=== PATIENT | male | born 1985 | race Caucasian/White ===

== ENCOUNTER 2016-11-03 15:31 | Inpatient (IN) | payer BC, OTHER ==
[~2016-11-03] VITALS: Ht 190.5 cm; Wt 77.1 kg
--- NOTE | 2016-11-03 20:00 | NUR ---
INTAKE ASSESSMENT PT ASSESSED IN INTAKE DEPARTMENT.PT IS A/O X 4.V/S ARE STABLE.DY=555/69,HR=82,T=97.9,R=18,O2 SAT=95%.PT IS ABLE TO AMBULATE IN A STEADY GAIT,SPEECH IS CLEAR.BREATHING IS EVEN AND NON LABORED,NO S/S OF ACUTE DISTRESS NOTED.PT IS IN STABLE CONDITION TO PROCEED TO DETOX UNIT.
[2016-11-03] MEDS ORDERED: MAG HYDROX/AL HYDROX/SIMETH 30 ML LIQUID UDC PO PRN (20:15)
[2016-11-03] MEDS ORDERED: MIRALAX 17 GM POWD.PACK PO PRN (20:15)
[2016-11-03] MEDS ORDERED: LOPERAMIDE HCL 2 MG CAPSULE PO PRN ×2 (20:15)
[2016-11-03] MEDS ORDERED: IBUPROFEN 600 MG TABLET PO PRN (20:15)
[2016-11-03] MEDS ORDERED: LORAZEPAM 1 MG TABLET PO PRN ×2 (20:15)
[2016-11-03] MEDS ORDERED: ACETAMINOPHEN 325 MG TABLET PO PRN (20:15)
[2016-11-03] MEDS ORDERED: diphenhydrAMINE 50 MG CAPSULE PO PRN (20:15)
[2016-11-03] MEDS ORDERED: ONDANSETRON ODT 4 MG TAB.RAPDIS SL PRN (20:15)
[2016-11-03] MEDS ORDERED: BUPRENORPHINE HCL 2 MG TAB.SUBL SL PRN (20:15)
[2016-11-03] MEDS ORDERED: HYDROXYZINE PAMOATE 25 MG CAPSULE PO PRN (20:15)
[2016-11-03] MEDS ORDERED: MAGNESIUM HYDROXIDE 30 ML LIQUID UDC PO PRN (20:15)
[2016-11-03] MEDS ORDERED: ONDANSETRON 4 MG/2 ML VIAL IM PRN (20:15)
[2016-11-03] MEDS ORDERED: LORAZEPAM 2 MG/1 ML VIAL IM PRN (20:15)
[2016-11-03] MEDS ORDERED: DICYCLOMINE HCL 20 MG TABLET PO PRN (20:15)
--- NOTE | 2016-11-03 21:00 | NUR ---
ADMISSION NOTE HT=6'3" HF=349 LBS. NKA. CD=664/82,T=97.9.HR=83,R=18,O2 SAT=96%. COWS=6 ; CIWA=4. ADMITTING 31 Y/O MALE TO [facility] FOR OPIATE DEPENDENCY.PT IS A/O X 4,HAS NKA,PLACED ON A REGULAR DIET AND FULL CODE STATUS.PT HAS BEEN USING HEROIN IV SINCE HE WAS 16 YEARS OLD.HE HAS HAD PERIODS OF SOBRIETY OFF AND ON,THE LONGEST WAS FOR 7 YEARS FROM 2004 TO 2010.PT HAS BEEN USING UP TO 4 GRAMS OF HEROIN IV FOR THE PAST 4 MONTHS ON A DAILY BASIS.PT HAS A PMH OF HEPATITIS C,ANXIETY,NERVE DAMAGE/SURGERY IN [facility] AND SEIZURE DISORDER.HIS LAST SEIZURE WAS IN MAY 2016.SKIN IS INTACT WITH TRACK HUITRON AND MULTIPLE INJECTION SITES WHICH ARE SCABBED ON BOTH HANDS AND ARMS.SOME REDNESS AND SWELLING NOTED IN RIGHT HAND.PT STATED HE HAS BEEN TAKING KEFLEX.PT HAS ALREADY BEEN SEEN BY DR ARCE AND MEDICATIONS HAVE BEEN RECONCILED.BREATHING IS EVEN AND NON LABORED.ABDOMEN IS SOFT AND PALPABLE WITH B/S PRESENT X 4.NO C/O CONSTIPATION NOTED.PT DOES NOT HAVE A PCP. PT ORIENTED TO ROOM AND UNIT,CARE PLAN AND SAFETY CHECKS INITIATED.ALL ADMISSION PAPERS SIGNED,EDUCATION PROVIDED ON HEP C,SMOKING CESSATION,SUBSTANCE ABUSE,FALL PREVENTION AND SEIZURES.PT PLACED ON FALL AND SEIZURE PRECAUTIONS.ALL SAFETY MEASURES IN PLACE.BED IS LOCKED IN THE LOWEST POSITION,SIDE RAILS UP AND PADDED X 2,CALL LIGHT WITHIN REACH.WILL CONTINUE TO MONITOR. TREATMENT HX FOLLOWS-- 1)[facility] IN FOR 7 DAYS. 2)[facility] AND ALL IN 2014 FOR 90 DAYS. 3)[facility] IN 2012 FOR 90 DAYS.
[2016-11-03] MEDS ORDERED: GABA-534 PO (21:03)
[2016-11-03 21:05] LABS: ALANINE AMINOTRANSFERASE 72 U/L (16-63); ALKALINE PHOSPHATASE 115 U/L (50-136); ASPARTATE AMINOTRANSFERASE 36 U/L (15-37); BILIRUBIN,TOTAL 0.7 mg/dL (0.2-1.0); CARBON DIOXIDE 28 mmol/L (21-32); CHLORIDE 98 mmol/L (98-107); CREATININE 1.1 mg/dL (0.6-1.3); GLUCOSE 139 mg/dL (74-106); MAGNESIUM 1.9 mg/dL (1.8-2.4); POTASSIUM 3.6 mmol/L (3.5-5.1); TOTAL PROTEIN, SERUM 8.3 g/dL (6.4-8.2); UREA NITROGEN, BLOOD 13 mg/dL (7-18)
[2016-11-03 21:06] LABS: BASOPHILS % (AUTO) 0.5 % (0.0-2.0); EOSINOPHILS # (AUTO) 0.1 K/uL (0.0-0.7); EOSINOPHILS % (AUTO) 1.7 % (0.0-7.0); HEMATOCRIT 43.1 % (40-50); LYMPHOCYTES # (AUTO) 1.8 K/UL (0.8-4.8); LYMPHOCYTES % (AUTO) 23.6 % (20.5-51.5); MEAN CORPUSCULAR HGB CONC 35 g/dL (32.0-37.0); MEAN CORPUSCULAR VOLUME 89.1 FL (82.0-92.0); MONOCYTES # (AUTO) 0.5 K/UL (0.1-1.30); MONOCYTES % (AUTO) 6.5 % (0.0-11.0); NEUTROPHILS # (AUTO) 5.1 K/UL (1.8-8.9); NEUTROPHILS % (AUTO) 67.7 % (38.5-71.5); PLATELET COUNT (AUTO) 192 K/UL (150-450); RED BLOOD CELL COUNT(AUTO) 4.84 MIL/UL (4.7-6.1); WHITE BLOOD COUNT (AUTO) 7.5 K/UL (4.0-11.2)
[2016-11-03] MEDS ORDERED: QUET200T PO (21:08)
[2016-11-03 21:09] LABS: *AMPHETAMINE, URINE NEGATIVE (NEGATIVE); *BARBITURATE, URINE POSITIVE (NEGATIVE); *CANNABINOID, URINE NEGATIVE (NEGATIVE); *COCCAINE, URINE NEGATIVE (NEGATIVE); *OPIATE, URINE POSITIVE (NEGATIVE); *PHENCYCLIDINE SCREEN,URINE NEGATIVE (NEGATIVE)
[2016-11-03] MEDS ORDERED: LEVE500T20 PO (21:09)
[2016-11-03] MEDS ORDERED: CEPH250C PO (21:10)
[2016-11-03 21:12] LABS: ETHANOL < 3 MG/DL (0-0)
[2016-11-03] MEDS ORDERED: CEPH500C2 PO (21:13)
[2016-11-03] MEDS: METHOCARBAMOL 750 MG TABLET PO PRN (21:52)
[2016-11-03] MEDS: CLONIDINE HCL 0.1 MG TABLET PO PRN (21:53)
--- NOTE | 2016-11-03 21:55 | NUR ---
PRN MEDS PRN ROBAXIN,CLONIDINE,BENADRYL AND ZOFRAN GIVEN ORDERED FOR C/O MYALGIA,DIAPHORESIS,INSOMNIA AND NAUSEA RESPECTIVELY.NO C/O VOMITING NOTED.WILL CONTINUE TO MONITOR.
[2016-11-03] MEDS ORDERED: PHEN60TA11 PO (22:04)
[2016-11-03] MEDS ORDERED: CLON1TAB PO (22:04)
[2016-11-03] MEDS ORDERED: LORAZEPAM 1 MG TABLET PO ONE (22:30)
--- NOTE | 2016-11-03 23:00 | NUR ---
PRN F/U PT VERBALIZES A RELIEF FROM SYMPTOMS.NAUSEA AND MYALGIA RELIEVED,DIAPHORESIS DECREASED.PT IS STILL AWAKE SAID HE IS GETTING SLEEPY.
[2016-11-04] VITALS: BP 122/77
[2016-11-04 04:00] VITALS: BP 109/74
--- NOTE | 2016-11-04 06:42 | NUR ---
END OF SHIFT PT IS 31 Y/O MALE ADMITTED TO [facility] FOR OPIATE DEPENDENCY.PT IS A/O X 4,HAS NKA,PLACED ON A REGULAR DIET AND FULL CODE STATUS. PT HAS A PMH OF HEPATITIS C,ANXIETY,NERVE DAMAGE/SURGERY IN [place] AND SEIZURE DISORDER.HIS LAST SEIZURE WAS IN MAY 2016.BREATHING IS EVEN AND NON LABORED.ABDOMEN IS SOFT AND PALPABLE WITH B/S PRESENT X 4.PT PLACED ON FALL AND SEIZURE PRECAUTIONS.LAST COWS=3,CIWA=3.PRN CLONIDINE,ZOFRAN,ROBAXIN AND BENADRYL WERE GIVEN WITH GOOD EFFECT.ALL SAFETY MEASURES IN PLACE.PT SLEPT 5 HRS,FLUID INTAKE WAS 355 MLS,VOIDED X 1.BED IS LOCKED IN THE LOWEST POSITION,SIDE RAILS UP AND PADDED X 2,CALL LIGHT WITHIN REACH.WILL CONTINUE TO MONITOR.
--- NOTE | 2016-11-04 07:00 | NUR ---
Start of Shift Notes: Received patient in his room. Alert and verbally responsive. Oriented x 4 Able to make his needs known. Respirations even and unlabored. No SOB noted. Skin warm and dry to touch. Abdomen soft and non-distended with (+) BS in all 4 quadrants. No complains of N/V/D or constipation noted. Ambulatory ad vargas with steady gait. Patient is a 31 year old male admitted for opiate and BZO dependence who was placed on PRNs at this time. Has past medical hx of Hep C, seizure disorder, RUE nerve damage and anxiety. Prior to admission, patient was using 4 grams of Heroin IV, and 1 mg of Klonopin BID. NKA. FULL CODE. Regular diet. On fall and seizure precautions. Educated patient on his current plan of care for the day and his medication regimen. Encouraged oral fluid intake and encouraged group participation to learn new skills to prevent relapse. Will continue to monitor.
--- NOTE | 2016-11-04 07:00 | NUR ---
Start of Shift Notes: Received patient in his room. Alert and verbally responsive. Oriented x 4 Able to make his needs known.
[2016-11-04 08:00] VITALS: BP 110/61
[2016-11-04] MEDS: METHOCARBAMOL 750 MG TABLET PO PRN (08:15)
[2016-11-04] MEDS: CLONIDINE HCL 0.1 MG TABLET PO PRN (08:16)
[2016-11-04] MEDS: MULTIVITAMINS,THERAPEUTIC TABLET PO SCH (08:16)
--- NOTE | 2016-11-04 08:16 | NUR ---
PRN Clonidine/Robaxin/Bentyl and Ativan 1 mg PO given" CIWA 12, patient noted with anxiety, tremors and agitation. Also noted with mild pins and needle sensation. Noted also with complain of 5/10 generalized muscle aches, stomach cramps, chills, hot flashes. Medicated patient with Ativan 1 mg PO per CIWA score, Clonidine 0.1mg, Robaxin 750 mg PO and Bentyl 20 mg PO. Will monitor for effectiveness .
[2016-11-04] MEDS ORDERED: TUBERCULIN,PURIF.PROT.DERIV. 5 TU/0.1 ML TEST ID ONE (09:00)
[2016-11-04] MEDS ORDERED: GABAPENTIN 300 MG CAPSULE PO SCH (09:00)
--- NOTE | 2016-11-04 09:16 | NUR ---
Re-assessment: Per patient, PRN Clondine, Robaxin, Bentyl were effective in reducing patient's chills, hot flashes, muscle aches and stomach cramps. Less anxious and less agitation noted. PRN Ativan was also effective.
[2016-11-04] MEDS: LEVETIRACETAM 500 MG TABLET PO SCH ×2 (09:21→21:26)
--- NOTE | 2016-11-04 09:23 | NUR ---
PRN Subutex 4 mg SL given: COWS 12. Patient noted with anxiety, facial flushing, mild restlessness, body aches, anxiety, agitation and piloerection of the skin with pupil dilation. Medicated patient with PRN Subutex 4 mg SL at this time. Will monitor for effectiveness.
--- NOTE | 2016-11-04 09:51 | NUR ---
Re-assessment: COWS 7. No goosebumps noted. Lesser anxiety and agitation noted. PRN Subutex 4 mg SL was effective in reducing patient's opiate withdrawal symptoms.
[2016-11-04 12:00] VITALS: BP 109/72
[2016-11-04] MEDS: BUPRENORPHINE HCL 2 MG TAB.SUBL SL SCH ×3 (12:37→21:28)
[2016-11-04] MEDS: LORAZEPAM 1 MG TABLET PO SCH ×3 (12:38→21:26)
[2016-11-04] MEDS: LACTOBACILLUS RHAMNOSUS GG 1 EACH CAPSULE PO SCH ×2 (14:52→21:27)
[2016-11-04] MEDS: CEPHALEXIN MONOHYDRATE 500 MG CAPSULE PO SCH ×2 (14:52→21:27)
[2016-11-04] MEDS: GABAPENTIN 300 MG CAPSULE PO SCH ×2 (14:52→21:26)
[2016-11-04 16:00] VITALS: BP 117/77
[2016-11-04] MEDS: NEOMY/BACITRAC/POLYMI OINT 28.35 GM TUBE TOP SCH (16:24)
--- NOTE | 2016-11-04 19:03 | NUR ---
End of Shift Notes: Patient continues to be on a 5-day Ativan and 5-day Subutex taper that was started today. VS monitored closely q 4 hours. No significant abnormalities noted. Withdrawal symptoms were closely monitored. Initial COWS 12, CIWA 12, patient presented with anxiety, agitation, stomach cramps, chills, hot flashes, muscle aches and pains, goosebumps, and pupil dilation. Medicated patient with PRN Ativan 1 mg, Clonidine, Robaxin, Bentyl at 0816 with help and Subutex 4 mg at 0921 with help after 30 minutes. Last COWS 5/CIWA 4. Per patient, Ativan and Subutex has been helping him with his withdrawal symptoms. Unable to participate in group and therapy sessions. Compliant with care and treatment. Continues to be on flall and seizure precautions. All needs met and attended. Will continue to monitor closely.
--- NOTE | 2016-11-04 19:30 | NUR ---
START OF SHIFT Pt is 31 y/o male admitted for Opiate/Benzo dependency;alert and oriented x 4 ,received in room in stable condition. Breathing is even and non labored,no s/s of distress noted. Has past medical hx of Hep C, seizure disorder, RUE nerve damage and anxiety. NKA. FULL CODE. Regular diet. On fall and seizure precautions. Pt placed on 5 day Ativan and 5 day Subutex taper.No A/R noted.Last COWS=5/CIWA=4. Compliant with care and treatment. All safety measures in place,call light within reach. Will continue to monitor closely.
[2016-11-04 20:00] VITALS: BP 121/74
[2016-11-04] MEDS: QUETIAPINE FUMARATE 200 MG TABLET PO SCH (21:27)
[2016-11-05] VITALS: BP 90/54
[2016-11-05 04:00] VITALS: BP 104/60
[2016-11-05 06:08] LABS: HEPATITIS B SURFACE AG Negative (Negative)
--- NOTE | 2016-11-05 06:51 | NUR ---
END OF SHIFT Pt is 31 y/o male admitted for Opiate/Benzo dependency;alert and oriented x 4 ,received in room in stable condition. Breathing is even and non labored,no s/s of distress noted. Has past medical hx of Hep C, seizure disorder, RUE nerve damage and anxiety. NKA. FULL CODE. Regular diet. On fall and seizure precautions. Pt placed on 5 day Ativan and 5 day Subutex taper.No A/R noted.Last COWS=1/CIWA=2.No PRN meds given;pt slept 10 hrs,fluid intake [id number] mls,voided x 2,BM x 1. Compliant with care and treatment. All safety measures in place,call light within reach.Will continue to monitor.
--- NOTE | 2016-11-05 07:00 | NUR ---
Start of Shift Notes: Received patient in his room. Alert and verbally responsive. Oriented x 4 Able to make his needs known. Respirations even and unlabored. No SOB noted. Skin warm and dry to touch. Abdomen soft and non-distended with (+) BS in all 4 quadrants. No complains of N/V/D or constipation noted. Ambulatory ad vargas with steady gait. Patient is a 31 year old male admitted for opiate and BZO dependence who was placed 5-day Ativan and 5-day Subutex taper as ordered. No adverse reactions noted. Has past medical hx of Hep C, seizure disorder, RUE nerve damage and anxiety. Prior to admission, patient was using 4 grams of Heroin IV, and 1 mg of Klonopin BID. NKA. FULL CODE. Regular diet. On fall and seizure precautions. Educated patient on his current plan of care for the day and his medication regimen. Encouraged oral fluid intake and encouraged group participation to learn new skills to prevent relapse. Will continue to monitor.
[2016-11-05 08:00] VITALS: BP 101/58
[2016-11-05] MEDS: CEPHALEXIN MONOHYDRATE 500 MG CAPSULE PO SCH ×3 (08:41→21:02)
[2016-11-05] MEDS: LACTOBACILLUS RHAMNOSUS GG 1 EACH CAPSULE PO SCH ×2 (08:42→21:01)
[2016-11-05] MEDS: BUPRENORPHINE HCL 2 MG TAB.SUBL SL SCH ×3 (08:42→21:03)
[2016-11-05] MEDS: MULTIVITAMINS,THERAPEUTIC TABLET PO SCH (08:42)
[2016-11-05] MEDS: LORAZEPAM 1 MG TABLET PO SCH ×3 (08:42→21:00)
[2016-11-05] MEDS: GABAPENTIN 300 MG CAPSULE PO SCH ×3 (08:42→21:02)
[2016-11-05] MEDS: LEVETIRACETAM 500 MG TABLET PO SCH ×2 (08:42→21:02)
[2016-11-05] MEDS: NEOMY/BACITRAC/POLYMI OINT 28.35 GM TUBE TOP SCH ×2 (08:52→16:02)
[2016-11-05 12:00] VITALS: BP 114/67
[2016-11-05 16:00] VITALS: BP 114/71
--- NOTE | 2016-11-05 16:03 | NUR ---
Triple ATB ointment not administered: Patient refused triple ATB ointment at this time despite explanations of risk and benefits. Patient still refused. Offered 3 x. Patient states "I don't need it at this time."
--- NOTE | 2016-11-05 18:54 | NUR ---
End of Shift Notes: Patient continues to be on a 5-day Ativan and 5-day Subutex taper that was started today. VS monitored closely q 4 hours. No significant abnormalities noted. Withdrawal symptoms were closely monitored. Initial COWS 7, CIWA 7, patient presented with anxiety, agitation, chills, hot flashes, muscle aches and pains, goosebumps, and pupil dilation. Last COWS 3/CIWA 3. Per patient, Ativan and Subutex has been helping him with his withdrawal symptoms. Treatment to patient's left hand wound ongoing as ordered with triple ATB ointment. No s/s of infection noted at this time. On Keflex as ordered. No adverse reactions noted. Unable to participate in group and therapy sessions. Compliant with care and treatment. Continues to be on flall and seizure precautions. All needs met and attended. Will continue to monitor closely.
[2016-11-05 20:00] VITALS: BP 117/70
--- NOTE | 2016-11-05 20:00 | NUR ---
1999 Patient received awake, alert and lying quietly in his bed watching television. Patient responds to nurse's greeting and introduction with, "Hi, I feel fine" Patient is oriented to person, place, day, date and his personal situation. Reoriented to time. Patient's color is tannish-pink and his skin is warm, dry and intact. Clean small band-aid dressing dry and intact to space between right thumb and forefinger, over healing, small, dry, round, dark-red. Patient states that he is feeling tired since admission and has not attended any [facility] groups today. Patient states further that he is eating his regular diet rays and taking fluids ad vargas with no gastric issues. Patient denies any pain or other discomforts at this time and he offers no requests. Vital signs are: 98.1-59-16 117/70, O2 Sat 99%, COWS 2 , CIWA 3 . Patient was admitted on 11/03/16 for: Heroin, Klonopin(Rx) and Phenobarbital(Rx) withdrawal and he is currently on a 5-Day Ativan medication taper and a 5-Day Subutex medication taper, both of which he is apparently tolerating well thus far. Patient is cooperative and verbally appropriate when interacting with nurse, though his overall affect is flat and his body movements are slow. Fall/Seizure precautions in place. Bed is locked and in lowest position, padded bed rails are up X 2 and call light within patient's easy reach.
[2016-11-05] MEDS: QUETIAPINE FUMARATE 200 MG TABLET PO SCH (21:02)
[2016-11-06] VITALS: BP 106/64
--- NOTE | 2016-11-06 04:00 | NUR ---
Patient refused to be awakened for V/S to be done at this time.
--- NOTE | 2016-11-06 06:30 | NUR ---
0630 Patient slept a total of 7 hours and he had 2 voids and no stools. Total intake was 855 ml p.o. No Prn medications given this shift. V/SS afebrile, last COWS 2, last CIWA 3 at 0000. Patient is presently sleeping soundly with eyes closed and respirations quiet, even, unlabored at 12.
--- NOTE | 2016-11-06 07:42 | NUR ---
START OF SHIFT Received report from shift supervisor rn nurse. 31 year old male patient admitted on 11/03/16 for opiate and benzo dependence. Pt has been placed on a 5 day Ativan and 5 day Subutex and is tolerating taper well. Hx of Hep C, right upper extremity nerve damage, anxiety and seizures. Pt is on scheduled Keppra for seizures. Remains seizure free throughout hospitalization. V/S remain WNL. No PRN medications needed or administered, pt slept for 7 hours. Most recent COWS 2 and CIWA is 3 at 0000. Pt is awake, and resting in bed at this time. Will continue to monitor.
[2016-11-06 08:06] VITALS: BP 106/65
[2016-11-06] MEDS ORDERED: LORAZEPAM 1 MG TABLET PO SCH (09:00)
[2016-11-06] MEDS ORDERED: BUPRENORPHINE HCL 2 MG TAB.SUBL SL SCH (09:00)
[2016-11-06] MEDS: LEVETIRACETAM 500 MG TABLET PO SCH ×2 (09:10→21:52)
[2016-11-06] MEDS: MULTIVITAMINS,THERAPEUTIC TABLET PO SCH (09:10)
[2016-11-06] MEDS: LACTOBACILLUS RHAMNOSUS GG 1 EACH CAPSULE PO SCH ×2 (09:10→21:51)
[2016-11-06] MEDS: CEPHALEXIN MONOHYDRATE 500 MG CAPSULE PO SCH ×3 (09:11→21:52)
[2016-11-06] MEDS: NEOMY/BACITRAC/POLYMI OINT 28.35 GM TUBE TOP SCH ×2 (09:11→17:26)
[2016-11-06] MEDS: GABAPENTIN 300 MG CAPSULE PO SCH (09:11)
[2016-11-06 12:00] VITALS: BP 105/65
[2016-11-06] MEDS: DIAZEPAM 10 MG TABLET PO SCH ×3 (12:53→21:52)
[2016-11-06] MEDS: BACLOFEN 10 MG TABLET PO SCH ×2 (14:17→21:52)
[2016-11-06] MEDS: GABAPENTIN 400 MG CAPSULE PO SCH ×2 (14:17→21:53)
[2016-11-06] MEDS: BUPRENORPHINE HCL 2 MG TAB.SUBL SL SCH ×2 (14:17→21:52)
[2016-11-06] MEDS: CLONIDINE HCL 0.1 MG TABLET PO PRN (14:20)
--- NOTE | 2016-11-06 14:22 | NUR ---
PRN CLONIDINE Pt c/o of hot and cold flashes and increased chills. PRN Clonidine administered as ordered. Will reassess.
--- NOTE | 2016-11-06 15:22 | NUR ---
REASSESSMENT Pt states he feels better, but still reports bouts of sweats and chills. Pt encouraged to rest. Will continue to monitor closely.
[2016-11-06] MEDS ORDERED: DIAZEPAM 10 MG TABLET PO ONE (15:30)
[2016-11-06 17:25] VITALS: BP 105/64
--- NOTE | 2016-11-06 18:49 | NUR ---
END OF SHIFT 31 year old male patient admitted on 11/03/16 for opiate and benzo dependence. Pt has been placed on a 5 day Subutex and is and switched from Ativan to a Valium taper today. Pt is tolerating taper well. Hx of Hep C, right upper extremity nerve damage, anxiety and seizures. Pt is on scheduled Keppra for seizures. Remains seizure free throughout hospitalization. V/S remain WNL. PRN Clonidine was administered and effective. Most recent COWS 4 and CIWA is 5 at 1700. Pt attends groups and activities. Pt reports poor appetite but eats at least 50% of meals and snacks adequately. software requirements engineer nurse will continue to monitor.
[2016-11-06 20:00] VITALS: BP 117/65
--- NOTE | 2016-11-06 20:00 | NUR ---
1999 Patient received awake, alert and just returning back to his room # [id number], from PM group. Gait is steady. Upon seeing nurse, patient states, " Hi, I'm doing fine today. I went to all my groups and I am eating some and drinking a lot." Patient is oriented to person, place, day, date, time and his personal situation. Patient's color is tannish-pink and his skin is warm, dry and intact. Very small band-aid dressing dry and intact to right thumb area. Patient denies any pain and he offers no requests for anything at this time. Patient states that his main concern now, is that he not come off of his medication tapers "too soon" for his comfort. Patient advised to discuss this concern with Dr. Bennett tomorrow. Patient states, " Okay, I will". Vital signs are: 97.5-65-12 117/65, O2 sat 100%, COWS 3 CIWA 4. Patient was admitted on 11/03/16 for: Heroin, Klonopin(Rx) and Phenobarbital(Rx) withdrawal and he is currently on a 5-Day Subutex medication taper and a 5-Day Valium( changed from Ativan today) medication taper, which he is apparently tolerating well thus far. Patient is friendly, cooperative and verbally appropriate when interacting with nurse. Bed is locked and in lowest position, bed rails are up X 1 and call light within patient's easy reach.
[2016-11-06] MEDS: QUETIAPINE FUMARATE 200 MG TABLET PO SCH (21:52)
--- NOTE | 2016-11-07 | NUR ---
Patient refused to be awakened for V/S to be done at this time.
--- NOTE | 2016-11-07 04:00 | NUR ---
Patient refused to be awakened at this time for V/S to be done at this time.
--- NOTE | 2016-11-07 06:30 | NUR ---
0630 Patient slept a total of 6 hours and he had 2 voids and no stools. Total intake was 2,210 ml p.o. No prn medications given this shift. V/SS afebrile, last COWS 3, last CIWA 4 at 1999. Patient is presently sleeping comfortably with eyes closed and respirations quiet, even, unlabored at 12.
--- NOTE | 2016-11-07 07:30 | NUR ---
START OF SHIFT Received endorsement from ongoing nurse, client is in bed, sound asleep, easy to arouse, RR 16 even, non-labored. 31 year old male client admitted on 11/03/16 for opiate and benzodiazepine withdrawal. Client has been placed on a 5 day Ativan and 5 day Subutex and is tolerating taper well. Hx of Hep C, right upper extremity nerve damage, anxiety and seizures. Pt is on scheduled Keppra for seizures. No PRN medications needed or administered, pt slept for 6 hours. Most recent COWS 4 / CIWA 5 at 0400. Side rails x 2 up/padded. Call light within reach. Will continue to monitor.
[2016-11-07 08:00] VITALS: BP 114/68
[2016-11-07] MEDS ORDERED: DIAZEPAM 5 MG TABLET PO SCH (09:00)
[2016-11-07] MEDS ORDERED: BUPRENORPHINE HCL 2 MG TAB.SUBL SL SCH (09:00)
[2016-11-07] MEDS ORDERED: LORAZEPAM 1 MG TABLET PO SCH (09:00)
[2016-11-07] MEDS: BACLOFEN 10 MG TABLET PO SCH (09:43)
[2016-11-07] MEDS: GABAPENTIN 400 MG CAPSULE PO SCH (09:43)
[2016-11-07] MEDS: LACTOBACILLUS RHAMNOSUS GG 1 EACH CAPSULE PO SCH ×2 (09:43→21:08)
[2016-11-07] MEDS: LEVETIRACETAM 500 MG TABLET PO SCH ×2 (09:44→21:08)
[2016-11-07] MEDS: MULTIVITAMINS,THERAPEUTIC TABLET PO SCH (09:44)
[2016-11-07] MEDS: CEPHALEXIN MONOHYDRATE 500 MG CAPSULE PO SCH ×3 (09:44→21:08)
[2016-11-07] MEDS: NEOMY/BACITRAC/POLYMI OINT 28.35 GM TUBE TOP SCH ×2 (09:46→16:50)
[2016-11-07 12:48] VITALS: BP 108/66
[2016-11-07] MEDS: GABAPENTIN 300 MG CAPSULE PO SCH ×2 (14:12→21:08)
[2016-11-07] MEDS: BACLOFEN 20 MG TABLET PO SCH ×2 (14:12→21:07)
[2016-11-07] MEDS: DIAZEPAM 5 MG TABLET PO SCH ×3 (14:12→21:07)
[2016-11-07] MEDS: CLONIDINE HCL 0.1 MG TABLET PO SCH ×2 (14:13→21:08)
[2016-11-07] MEDS: BUPRENORPHINE HCL 2 MG TAB.SUBL SL SCH ×3 (14:13→21:08)
[2016-11-07 16:55] VITALS: BP 120/71
--- NOTE | 2016-11-07 19:40 | NUR ---
END OF SHIFT 31 year old male client admitted on 11/03/16 for opiate and benzodiazepine withdrawal. Client continues on 5 day Subutex, 5 day Valium taper, tolerating well. He was compliant with group therapy. Adequate intake and output. Most recent COWS 6 and CIWA is 4 at 1700. Client reports poor appetite but eats at least 50% of meals and snacks adequately. Endorsed to incoming nurse.
--- NOTE | 2016-11-07 19:41 | NUR ---
Start of shift note Received report from esme shift nurse. Pt is a 31 yo male, A+Ox4, presenting to [facility] for Opiate/Benzo/Phenobarbital dependence. Pt has NKA, is on Full code status, and on Regular diet. Pt is on fall and Seizure precautions. Pt has HX of Hep C+, Seizure disorder, RUE nerve damage/SX. Pt is on 5 day Valium and 5 day Subutex tapers, tolerated well. No s/s of distress noted at this time. Respirations even and unlabored. Will continue to monitor.
[2016-11-07 20:35] VITALS: BP 117/69
[2016-11-07] MEDS: QUETIAPINE FUMARATE 200 MG TABLET PO SCH (23:29)
[2016-11-08 00:42] VITALS: BP 117/71
[2016-11-08 04:11] VITALS: BP 110/74
--- NOTE | 2016-11-08 07:30 | NUR ---
START OF SHIFT Received endorsement from ongoing nurse, client is in room, a/o x 4, he stated "I could not sleep last night, I feel tired, my legs were restless all night.". 31 year old male client admitted on 11/03/16 for opiate and benzodiazepine withdrawal. Client continues on 5 day Ativan and 5 day Subutex (day 4), tolerating taper well. Hx of Hep C, right upper extremity nerve damage, anxiety and seizures. Client is on scheduled Keppra for seizures. No PRN medications needed or administered, he slept for 5 hours. Most recent COWS 2 / CIWA 2 @ 0400. Side rails x 2 up/padded. Call light within reach. Will continue to monitor.
[2016-11-08 08:30] VITALS: BP 109/61
[2016-11-08] MEDS: BACLOFEN 20 MG TABLET PO SCH ×3 (08:51→21:09)
[2016-11-08] MEDS: LACTOBACILLUS RHAMNOSUS GG 1 EACH CAPSULE PO SCH ×2 (08:51→21:09)
[2016-11-08] MEDS: LEVETIRACETAM 500 MG TABLET PO SCH ×2 (08:51→21:10)
[2016-11-08] MEDS: MULTIVITAMINS,THERAPEUTIC TABLET PO SCH (08:51)
[2016-11-08] MEDS: GABAPENTIN 300 MG CAPSULE PO SCH ×3 (08:51→21:09)
[2016-11-08] MEDS: CEPHALEXIN MONOHYDRATE 500 MG CAPSULE PO SCH ×3 (08:51→21:09)
[2016-11-08] MEDS: CLONIDINE HCL 0.1 MG TABLET PO SCH ×3 (08:52→21:09)
[2016-11-08] MEDS: NEOMY/BACITRAC/POLYMI OINT 28.35 GM TUBE TOP SCH ×2 (08:52→16:24)
[2016-11-08] MEDS ORDERED: LORAZEPAM 1 MG TABLET PO SCH (09:00)
[2016-11-08] MEDS ORDERED: DIAZEPAM 5 MG TABLET PO SCH ×2 (09:00)
[2016-11-08] MEDS ORDERED: BUPRENORPHINE HCL 2 MG TAB.SUBL SL SCH ×2 (09:00)
[2016-11-08 12:55] VITALS: BP 94/61
--- NOTE | 2016-11-08 12:55 | NUR ---
Client report s pain 8/10 on L hand, he declined any PRN medication at this time. stating "It is getting better." No swelling or redness noted, track jose with dry scab on L thumb noted.
[2016-11-08] MEDS: DIAZEPAM 5 MG TABLET PO SCH ×2 (14:37→21:09)
[2016-11-08] MEDS: BUPRENORPHINE HCL 2 MG TAB.SUBL SL SCH ×2 (14:37→21:10)
[2016-11-08 16:55] VITALS: BP 109/55
[2016-11-08] MEDS ORDERED: BACL20TA PO (17:11)
[2016-11-08] MEDS ORDERED: DICY20TA28 PO (17:11)
[2016-11-08] MEDS ORDERED: GABA-534 PO (17:11)
[2016-11-08] MEDS ORDERED: IBUP-1955 PO (17:11)
[2016-11-08] MEDS ORDERED: CLON0.1T14 PO (17:11)
--- NOTE | 2016-11-08 19:21 | NUR ---
END OF SHIFT 31 year old male client admitted on 11/03/16 for opiate and benzodiazepine withdrawal. Client continues on 5 day Subutex, 5 day Valium taper, tolerating well. He was compliant with group therapy. Adequate intake and output. Most recent COWS 5 and CIWA is 4 at 1600. Endorsed to incoming nurse.
--- NOTE | 2016-11-08 19:22 | NUR ---
Start of shift note Received report from day shift nurse. Pt is a 31 yo male, A+Ox4, presenting to [facility] for Opiate/Benzo/Phenobarbital dependence. Pt has NKA, is on Full code status, and on Regular diet. Pt is on fall and Seizure precautions. Pt has HX of Hep C+, Seizure disorder, RUE nerve damage/SX. Pt is on 5 day Valium and 5 day Subutex tapers, tolerated well. No s/s of distress noted at this time. Respirations even and unlabored. Will continue to monitor.
[2016-11-08 20:32] VITALS: BP 104/71
[2016-11-09 00:15] VITALS: BP 109/73
[2016-11-09] MEDS: QUETIAPINE FUMARATE 200 MG TABLET PO SCH ×2 (00:46→20:59)
[2016-11-09 04:06] VITALS: BP 106/71
--- NOTE | 2016-11-09 07:00 | NUR ---
End of shift note Pt is a 31 yo male, A+Ox4, presenting to [facility] for Opiate/Benzo/Phenobarbital dependence. Pt has NKA, is on Full code status, and on Regular diet. Pt is on fall and Seizure precautions. Pt has HX of Hep C+, Seizure disorder, RUE nerve damage/SX. Pt is on 5 day Valium and 5 day Subutex tapers, tolerated well. Pt slept for a total of 5 HRS. Last COWS: 2 and Last CIWA: 2 @0400. No s/s of distress noted at this time. Respirations even and unlabored. Will endorse to day shift nurse.
--- NOTE | 2016-11-09 07:58 | NUR ---
START OF SHIFT Received endorsement from ongoing nurse, client is in room, he sounds asleep, easy to arouse, RR 18, even, non-labored. He had an uneventful night, he slept 5 hrs. Last COWS 2/ CIWA 2 @ 1999. 31 year old male client admitted on 11/03/16 for opiate and benzodiazepine withdrawal. Client is on his last of 5 day Ativan and 5 day Subutex, tolerating taper well. Hx of Hep C, right upper extremity nerve damage, anxiety and seizures. Client is on scheduled Keppra for seizures. Side rails x 2 up/padded. Call light within reach. Will continue to monitor.
[2016-11-09 08:02] VITALS: BP 107/66
[2016-11-09] MEDS ORDERED: DIAZEPAM 5 MG TABLET PO SCH (09:00)
[2016-11-09] MEDS ORDERED: BUPRENORPHINE HCL 2 MG TAB.SUBL SL SCH (09:00)
[2016-11-09] MEDS: CEPHALEXIN MONOHYDRATE 500 MG CAPSULE PO SCH ×3 (09:55→20:58)
[2016-11-09] MEDS: LEVETIRACETAM 500 MG TABLET PO SCH ×2 (09:55→20:58)
[2016-11-09] MEDS: BACLOFEN 20 MG TABLET PO SCH ×3 (09:55→20:58)
[2016-11-09] MEDS: MULTIVITAMINS,THERAPEUTIC TABLET PO SCH (09:55)
[2016-11-09] MEDS: LACTOBACILLUS RHAMNOSUS GG 1 EACH CAPSULE PO SCH ×2 (09:55→20:58)
[2016-11-09] MEDS: GABAPENTIN 300 MG CAPSULE PO SCH ×3 (09:55→20:58)
[2016-11-09] MEDS: NEOMY/BACITRAC/POLYMI OINT 28.35 GM TUBE TOP SCH ×2 (09:56→17:00)
[2016-11-09] MEDS: CLONIDINE HCL 0.1 MG TABLET PO SCH ×3 (09:56→20:58)
[2016-11-09 12:55] VITALS: BP 94/61
[2016-11-09 16:55] VITALS: BP 107/70
--- NOTE | 2016-11-09 19:24 | NUR ---
END OF SHIFT 31 year old male client admitted on 11/03/16 for opiate and benzodiazepine withdrawal. Client completed 5 day Subutex, 5 day Valium taper, tolerated well. He was compliant with group therapy. Adequate intake and output. Most recent COWS 2 and CIWA is 2 at 1600. Client is schedule for discharge tomorrow to [facility]. Urine for drug test was collected, no results yet. Endorsed to incoming nurse.
[2016-11-09 19:27] LABS: *AMPHETAMINE, URINE NEGATIVE (NEGATIVE); *BARBITURATE, URINE POSITIVE (NEGATIVE); *CANNABINOID, URINE NEGATIVE (NEGATIVE); *COCCAINE, URINE NEGATIVE (NEGATIVE); *OPIATE, URINE NEGATIVE (NEGATIVE); *PHENCYCLIDINE SCREEN,URINE NEGATIVE (NEGATIVE)
[2016-11-09 20:00] VITALS: BP 115/70
--- NOTE | 2016-11-09 20:00 | NUR ---
Start of Shift Pt is a 31 year old male admitted for Opiate/Benzo dependence, placed on 5 day Valium and 5 day Subutex taper completed. Pt reported using Heroin IV 4 g/daily, Klonopin 1mg/BID and Phenobarbital 60mg/TID. PMH: Hep C, seizure d/o, RUE Nerve damage/surgery and anxiety. NKA, regular diet, fall/seizure precautions and full code. Upon assessment, pt presents with anxiety, skin is flushed, respirations even/unlabored, denies SOB/chest pain, denies n/v/d, bowel sounds active x4, abdomen soft. Pt is scheduled for discharge tomorrow. Safety measures in place, call light within reach, side rails up x2, bed locked and in low position. Will continue to monitor.
[2016-11-10] VITALS: BP 118/66
[2016-11-10 04:00] VITALS: BP 109/69
--- NOTE | 2016-11-10 04:00 | NUR ---
Vital Signs BP 109/69, pulse 64, resp 12, SpO2 97% room air , temp 97.8, no reports of pain 0/10 COWS/CIWA deferred d/t pt sleeping to assess while pt is awake as ordered. Safety measures in place. Will continue to monitor.
--- NOTE | 2016-11-10 07:00 | NUR ---
End of Shift Pt is a 31 year old male admitted for Opiate/Benzo dependence, placed on 5 day Valium and 5 day Subutex taper completed. Pt reported using Heroin IV 4 g/daily, Klonopin 1mg/BID and Phenobarbital 60mg/TID. PMH: Hep C, seizure d/o, RUE Nerve damage/surgery and anxiety. NKA, regular diet, fall/seizure precautions and full code. During shift, pt presented with anxiety, skin is flushed, respirations even/unlabored scheduled medications administered, CIWA 2 and COWS 1. No PRN medications administered during shift. No s/s of acute withdrawal noted. Pt is scheduled for discharge today. Pt slept for 6 hours, intake of 1635 ml PO, voids x3 and stools x0. Safety measures in place, call light within reach, side rails up x2, bed locked and in low position. Endorsed to day shift nurse.
--- NOTE | 2016-11-10 07:47 | NUR ---
START OF SHIFT Received endorsement from ongoing nurse, client is in room, he sounds asleep, easy to arouse, RR 16, even, non-labored. He had an uneventful night, he slept 6 hrs. Last COWS 1/ CIWA 2 @ 1999. Client is scheduled for discharge today to [facility]. Client admitted on 11/03/16 for opiate and benzodiazepine withdrawal. Client completed 5 day Valium and Subutex taper w/o ASE. Hx of Hep C, right upper extremity nerve damage, anxiety and seizures. Client is on scheduled Keppra for seizures. Side rails x 2 up/padded. Call light within reach. Will continue to monitor.
[2016-11-10 08:00] VITALS: BP 99/53
[2016-11-10] MEDS: CEPHALEXIN MONOHYDRATE 500 MG CAPSULE PO SCH (09:42)
[2016-11-10] MEDS: GABAPENTIN 300 MG CAPSULE PO SCH (09:42)
[2016-11-10] MEDS: BACLOFEN 20 MG TABLET PO SCH (09:42)
[2016-11-10] MEDS: MULTIVITAMINS,THERAPEUTIC TABLET PO SCH (09:42)
[2016-11-10] MEDS: LEVETIRACETAM 500 MG TABLET PO SCH (09:42)
[2016-11-10] MEDS: LACTOBACILLUS RHAMNOSUS GG 1 EACH CAPSULE PO SCH (09:42)
[2016-11-10] MEDS: CLONIDINE HCL 0.1 MG TABLET PO SCH (09:42)
[2016-11-10] MEDS: NEOMY/BACITRAC/POLYMI OINT 28.35 GM TUBE TOP SCH (09:46)
--- NOTE | 2016-11-10 10:01 | NUR ---
Therapist prompted client about group times. Client stated he is most likely discharging today.
[2016-11-10 12:18] VITALS: BP 127/86
--- NOTE | 2016-11-10 14:43 | NUR ---
Discharge note Client was admitted for withdrawal from heroin and sedative-hypnotics. Client has a recent COWS 3/ CIWA 3. Client's VS are WNL. Client denies any SI/HI. Client verbalized his understanding of the discharge instructions. Client has no complaints at this time. Client discharge instructions, prescriptions, medications and all belongings returned to him. All needs addressed at this time. Abrasion on R wrist with dry scab. Client ambulated off of unit, he left facility via [facility] for [facility].
== END 2016-11-10 14:43 | disposition other institution (70) | DRG 895 ==
LOC: SRC 19:31
PROVIDERS: ADMIT Internal Medicine; ATTEND Internal Medicine
PROC: HZ2ZZZZ Detoxification Services for Substance Abuse Treatment (ICD-10-PCS; principal; 2016-11-03)
PROC: HZ31ZZZ Individual Counseling for Substance Abuse Treatment, Behavioral (ICD-10-PCS; 2016-11-05)
PROC: HZ41ZZZ Group Counseling for Substance Abuse Treatment, Behavioral (ICD-10-PCS; 2016-11-06)
DX: F11.23 Opioid dependence with withdrawal (principal); G40.919 Epilepsy, unspecified, intractable, without status epilepticus; L03.113 Cellulitis of right upper limb; F13.239 Sedative, hypnotic or anxiolytic dependence with withdrawal, unspecified; B19.20 Unspecified viral hepatitis C without hepatic coma; Z59.0 Homelessness; F41.9 Anxiety disorder, unspecified; G47.00 Insomnia, unspecified; F17.210 Nicotine dependence, cigarettes, uncomplicated; F39 Unspecified mood [affective] disorder; G56.91 Unspecified mononeuropathy of right upper limb; Z82.49 Family history of ischemic heart disease and other diseases of the circulatory system; Z81.8 Family history of other mental and behavioral disorders; F15.10 Other stimulant abuse, uncomplicated; R73.9 Hyperglycemia, unspecified
CPT/HCPCS: 36415; 70030-TC; 80307; 80345; 80361; 83735; 85025; 86580; 86592; 86705; 86803; 87340; 87806; A4663; G0480; Q0162; Q0163